=== PATIENT | male | born 1980 | race African-American/Black ===

== ENCOUNTER 2018-10-18 21:44 | Emergency (ER) | payer SELFPAY ==
[~2018-10-18] VITALS: Ht 175.3 cm; Wt 81.6 kg
[2018-10-18 22:20] VITALS: BP 131/91
--- NOTE | 2018-10-18 22:33 | PHYS DOC ---
Adult General Chief Complaint Chief Complaint: TOOTH ACHE OR PAIN HPI HPI Patient is a 38 year old male who presents with a toothache. Patient states that his left bottom tooth began hurting yesterday morning. Patient states that he has a history of poor dentition and has had infections in his mouth in the past. Patient does not have a dentist. Patient currently rates his pain to be 10/10 and describes it as throbbing. Patient reports taking eight 200mg ibuprofen around eight o'clock this evening without relief. Patient states that he is having trouble sleeping and chewing food. Patient denies any alleviating factors. Review of Systems Review of Systems Constitutional: Denies fever or chills Eyes: Denies change in visual acuity or eye pain HENT: Denies nasal congestion or sore throat Respiratory: Denies cough or shortness of breath Cardiovascular: Denies chest pain or palpitations GI: Denies abdominal pain, nausea, vomiting, or diarrhea : Denies dysuria or hematuria Musculoskeletal: Denies back pain or joint pain Integument: Denies rash or skin lesions Neurologic: Denies focal weakness or sensory changes Complete systems were reviewed and found to be within normal limits, except as documented in this note. Current Medications Current Medications Current Medications Medications (Trade) Dose Ordered Sig/Sonia Start Time Stop Time Status Last Admin Dose Admin Amoxicillin/ Clavulanate Potassium (Augmentin 875/ 125mg) 1 tab 1X ONCE 10/18/18 23:00 10/18/18 23:01 DC 10/18/18 23:15 1 TAB Bupivacaine HCl/ Epinephrine Bitart (Sensorcain-Mpf Epi 0.5%-1:[id number]) 30 ml 1X ONCE 10/18/18 23:00 10/18/18 23:01 DC 10/18/18 23:15 30 ML Dexamethasone (Decadron) 10 mg 1X ONCE 10/18/18 23:00 10/18/18 23:01 DC 10/18/18 23:15 10 MG Allergies Allergies Allergies Coded Allergies Type Severity Reaction Last Updated Verified No Known Drug Allergies 10/18/18 No Physical Exam Physical Exam Constitutional: Well developed, well nourished, in mild painful distress. HENT: Normocephalic, atraumatic, oropharynx moist, nose normal, tenderness to tooth #20 on palpation. Eyes: PERRL, conjunctiva normal, no discharge. Neck: Normal range of motion, supple, no stridor. Cardiovascular:Heart rate regular rhythm, no murmur Lungs & Thorax: Bilateral breath sounds clear to auscultation Abdomen: Soft, no tenderness on palpation Skin: Warm, dry, no rash. Back: No tenderness, no CVA tenderness. Extremities: ROM intact, no edema. Neurologic: Alert and oriented X3, no focal deficits noted. Psychologic: Affect normal. Speech normal. Current Patient Data Vital Signs Vital Signs Date Time Temp Pulse Resp B/P (MAP) Pulse Ox O2 Delivery O2 Flow Rate FiO2 10/18/18 22:20 98.5 76 20 131/91 (104) 99 Room Air 98.5 EKG EKG [] Radiology/Procedures Radiology/Procedures [] Course & Med Decision Making Course & Med Decision Making Patient is a 38 year old male who presents for a toothache. Patient treated with 10mg Dexamethasone and 1 tablet of 875mg Augmentin in the ED. On reexamination after inferior alveolar block performed, patient reports feeling much better. Prescriptions for Augmentin, Chlorhexidine, and Naproxen given. Patient stable for discharge with outpatient follow-up with PCP. Discussed findings and plan with patient and family, who acknowledge understanding and agreement. List of dental clinics given. Dragon Disclaimer Dragon Disclaimer This electronic medical record was generated, in whole or in part, using a voice recognition dictation system. Additional Procedures Progress Verbal consent obtained. Time out performed. Hand hygiene utilized. Inferior alveolar dental block performed. Anesthesia obtained via a 25-gauge hypodermic needle with 3 mL's of 0.5% bupivacaine with epinephrine. Patient tolerated procedure well and without difficulty. Departure Departure Impression: Primary Impression: Dentalgia Additional Impression: Dental caries Disposition: 01 HOME, SELF-CARE Condition: STABLE Referrals: NO PCP (PCP) Patient Instructions: Dental Caries, Toothache-Brief Scripts Naproxen (NAPROXEN) 375 Mg Tablet 1 TAB PO TID, #20 TAB 0 Refills Prov: FELIZ ESPAÑA DO 10/18/18 Chlorhexidine Gluconate (PERIDEX) 15 Ml Mouthwash 15 ML PO BID, #946 ML Prov: FELIZ ESPAÑA DO 10/18/18 Amoxicillin/Potassium Clav (AUGMENTIN 875-125 TABLET) 1 Each Tablet 1 TAB PO BID, #14 TAB Prov: FELIZ ESPAÑA DO 10/18/18 Problem Qualifiers FELIZ ESPAÑA DO Oct 18, 2018 22:33
[2018-10-18] MEDS ORDERED: DEXAMETHASONE 4 MG TABLET PO ONE (23:00)
[2018-10-18] MEDS ORDERED: AMOXICILLIN/K CLAV 875/125MG TABLET. PO ONE (23:00)
[2018-10-18] MEDS ORDERED: BUPIVAC MPF-EPI 0.5%-1:200000 30 ML VIAL. INJ ONE (23:00)
[2018-10-18] MEDS ORDERED: CHLO15MO2 PO (23:30)
[2018-10-18] MEDS ORDERED: AMOX1TAB61 PO (23:30)
[2018-10-18] MEDS ORDERED: NAPR-695 PO (23:36)
== END 2018-10-18 23:56 | disposition home or self-care (01) ==
LOC: ER 21:44
DX: K02.9 Dental caries, unspecified (principal)
CPT/HCPCS: 64400; 99284; J3490; J8540